=== PATIENT | male | born 1985 | race Caucasian/White ===

== ENCOUNTER 2020-07-21 15:27 | Emergency (ER) | payer SELFPAY ==
--- NOTE | 2020-07-21 16:10 | ER ---
Nurse's Notes [facility] Name: Lionel Garcia Age: 35 yrs Sex: Male : 1985 Arrival Date: 07/21/2020 Time: 15:29 Bed 12 Private MD: Diagnosis: Contusion of left hand Presentation: 07/21 15:32 Chief complaint: Patient states: L hand pain and swelling that began yesterday after ss punching a wall. Coronavirus screen: Client denies travel out of the [place] in the last 14 days. Ebola Screen: Patient denies exposure to infectious person. Patient denies travel to an Ebola-affected area in the 21 days before illness onset. Initial Sepsis Screen: Does the patient meet any 2 criteria? No. Patient's initial sepsis screen is negative. Does the patient have a suspected source of infection? No. Patient's initial sepsis screen is negative. Risk Assessment: Do you want to hurt yourself or someone else? Patient reports no desire to harm self or others. Onset of symptoms was July 20, 2019. 15:32 Method Of Arrival: Law Enforcement: Emy ROSAS 15:32 Acuity: NUSRAT 4 ss Historical: - Allergies: 15:34 No Known Allergies; ss - Immunization history:: Adult Immunizations up to date. Screenin:35 Abuse screen: Denies threats or abuse. Denies injuries from another. Nutritional ss screening: No deficits noted. Tuberculosis screening: Never had TB. Fall Risk None identified. Assessment: 15:35 General: Appears in no apparent distress. comfortable, Behavior is calm, cooperative. ss Pain: Complains of pain in left hand Quality of pain is described as aching, tender, Is continuous. Neuro: Level of Consciousness is awake, alert, obeys commands, Oriented to person, place, time, situation. Cardiovascular: Capillary refill < 3 seconds is brisk in bilateral fingers. Cardiovascular: Pulses are palpable in right radial artery and left radial artery. Respiratory: Respiratory effort is even, unlabored, Respiratory pattern is regular, symmetrical. GI: No signs and/or symptoms were reported involving the gastrointestinal system. Derm: Skin is intact, is healthy with good turgor, Skin is dry, Skin is pink, warm \T\ dry. normal. Vital Signs: 15:41 Pulse 97; Temp 97.9(TE); Pulse Ox 98% on R/A; ss ED Course: 15:29 Patient arrived in ED. ss 15:29 Lisseth Mejias F[facility]-C [facility] kb 15:29 Josh Teague MD is Attending Physician. kb 15:30 Jacqueline Cano, RN is Primary Nurse. ss 15:33 Triage completed. ss 15:34 Arm band placed on right wrist. ss 15:35 Patient has correct armband on for positive identification. law enforcement with ss patient. 16:09 Hand Left 3 View XRAY In Process Unspecified. EDMS 16:15 No provider procedures requiring assistance completed. Patient did not have IV access ss during this emergency room visit. Administered Medications: 16:11 Drug: Ibuprofen 800 mg Route: PO; ss 16:16 Follow up: Response: Medication administered at discharge. ss Outcome: 16:10 Discharge ordered by . kb 16:15 Discharged to Law Enforcement ss 16:15 Condition: good 16:15 Discharge instructions given to patient, police, Instructed on discharge instructions, follow up and referral plans. Demonstrated understanding of instructions, follow-up care. 16:16 Patient left the ED. ss Signatures: Dispatcher [employer] EDMS Lisseth Mejias FNP-C FNP-Ticob Jacqueline Cano, RN RN ss
--- NOTE | 2020-07-21 16:10 | EDPHYS ---
Physician Documentation [facility] Name: Lionel Garcia Age: 35 yrs Sex: Male : 1985 Arrival Date: 07/21/2020 Time: 15:29 Bed 12 Private MD: ED Physician Josh Teague HPI: 07/21 16:08 This 35 yrs old Male presents to ER via Law Enforcement with complaints of kb Hand Pain. 16:08 The patient or guardian reports a contusion, decreased range of motion, injury, pain, kb swelling, tenderness. The complaints affect the left hand diffusely. Context: The problem was sustained at home, resulted from using own fist to strike, a wall. Onset: The symptoms/episode began/occurred yesterday. Modifying factors: The symptoms are alleviated by nothing, the symptoms are aggravated by nothing. Associated signs and symptoms: The patient has no apparent associated signs or symptoms. Severity of symptoms: At their worst the symptoms were moderate, in the emergency department the symptoms are unchanged. The patient has not experienced similar symptoms in the past. The patient has not recently seen a physician. Pt reports hand pain, swelling, decreased ROM since yesterday after punching the wall. Historical: - Allergies: 15:34 No Known Allergies; ss - Immunization history:: Adult Immunizations up to date. ROS: 16:07 Constitutional: Negative for fever, chills, and weight loss, Cardiovascular: Negative kb for chest pain, palpitations, and edema, Respiratory: Negative for shortness of breath, cough, wheezing, and pleuritic chest pain, Abdomen/GI: Negative for abdominal pain, nausea, vomiting, diarrhea, and constipation, Skin: Negative for injury, rash, and discoloration, Neuro: Negative for headache, weakness, numbness, tingling, and seizure. 16:07 MS/extremity: Positive for contusion, decreased range of motion, pain, swelling, tenderness, of the left hand. Exam: 16:07 Constitutional: This is a well developed, well nourished patient who is awake, alert, kb and in no acute distress. Head/Face: Normocephalic, atraumatic. Chest/axilla: Normal chest wall appearance and motion. Nontender with no deformity. No lesions are appreciated. Cardiovascular: Regular rate and rhythm with a normal S1 and S2. No gallops, murmurs, or rubs. Normal PMI, no JVD. No pulse deficits. Respiratory: Lungs have equal breath sounds bilaterally, clear to auscultation and percussion. No rales, rhonchi or wheezes noted. No increased work of breathing, no retractions or nasal flaring. Abdomen/GI: Soft, non-tender, with normal bowel sounds. No distension or tympany. No guarding or rebound. No evidence of tenderness throughout. Skin: Warm, dry with normal turgor. Normal color with no rashes, no lesions, and no evidence of cellulitis. Neuro: Awake and alert, GCS 15, oriented to person, place, time, and situation. Cranial nerves II-XII grossly intact. Motor strength 5/5 in all extremities. Sensory grossly intact. Cerebellar exam normal. Normal gait. 16:07 Musculoskeletal/extremity: Extremities: grossly normal except: noted in the left hand: contusion, decreased ROM, pain, swelling, tenderness, ROM: limited active range of motion due to pain, in the left hand, Circulation is intact in all extremities. Sensation intact. Vital Signs: 15:41 Pulse 97; Temp 97.9(TE); Pulse Ox 98% on R/A; ss MDM: 15:29 Patient medically screened. kb 16:07 Data reviewed: vital signs, nurses notes. Data interpreted: Pulse oximetry: on room air kb is 98 %. Interpretation: normal. Counseling: I had a detailed discussion with the patient and/or guardian regarding: the historical points, exam findings, and any diagnostic results supporting the discharge/admit diagnosis, radiology results, the need for outpatient follow up, a family practitioner, to return to the emergency department if symptoms worsen or persist or if there are any questions or concerns that arise at home. 07/21 15:29 Order name: Hand Left 3 View XRAY kb Administered Medications: 16:11 Drug: Ibuprofen 800 mg Route: PO; ss 16:16 Follow up: Response: Medication administered at discharge. Disposition: 07/22 08:42 Co-signature as Attending Physician, Josh Teague MD I agree with the assessment and hebert plan of care. Disposition: 07/21/20 16:10 Discharged to Home. Impression: Contusion of left hand. - Condition is Stable. - Discharge Instructions: Hand Contusion, [id number]. - Medication Reconciliation Form, Thank You Letter, Antibiotic Education, Prescription Opioid Use form. - Follow up: Emergency Department; When: As needed; Reason: Worsening of condition. Follow up: Private Physician; When: 2 - 3 days; Reason: Recheck today's complaints, Continuance of care, Re-evaluation by your physician. Signatures: Dispatcher [employer] EDMS Lisseth Mejias, CATALOG SPECIALIST-C CATALOG SPECIALIST-Josh Lee MD MD cha Smirch, Shelby, RN RN ss Corrections: (The following items were deleted from the chart) 07/21 16:16 16:10 07/21/2020 16:10 Discharged to Home. Impression: Contusion of left hand. ss Condition is Stable. Forms are Medication Reconciliation Form, Thank You Letter, Antibiotic Education, Prescription Opioid Use. Follow up: Emergency Department; When: As needed; Reason: Worsening of condition. Follow up: Private Physician; When: 2 - 3 days; Reason: Recheck today's complaints, Continuance of care, Re-evaluation by your physician. kb
[2020-07-21] MEDS ORDERED: IBUPROFEN 400 MG TAB ONE (16:25)
--- NOTE | 2020-07-21 16:39 | RAD REPORT ---
EXAM DESCRIPTION: RAD - Hand Left 3 View - 07/21/2020 4:09 pm CLINICAL HISTORY: PAIN Pain and swelling COMPARISON: No comparisons FINDINGS: Moderate soft tissue swelling is seen along the dorsum of the hand. No acute fracture disl ocation identified.
== END 2020-07-21 16:16 | disposition home or self-care (01) ==
LOC: ER 15:27
DX: S60.222A Contusion of left hand, initial encounter (principal); W22.09XA Striking against other stationary object, initial encounter; Y93.89 Activity, other specified; Y92.9 Unspecified place or not applicable
CPT/HCPCS: 99283

== ENCOUNTER 2020-12-11 09:25 | Emergency (ER) | payer SELFPAY ==
[2020-12-11] MEDS ORDERED: ONDANSETRON 4 MG/2 ML VIAL ONE (10:11)
[2020-12-11] MEDS ORDERED: FENTANYL CITR 100 MCG/2 ML ONE (10:11)
[2020-12-11 10:20] LABS: Absolute Lymphocytes (CBC) 1.3 K/uL (0.7-4.9); Basophils % 0.7 % (0-1.3); Hematocrit 46.9 % (39.6-49.0); Lymphocytes % 10.6 % (15.3-44.8); MPV 8.4 fL (7.6-11.3); RBC Red Blood Cell Count 5.01 M/uL (4.33-5.43)
[2020-12-11 10:24] LABS: Protime INR 1.05
[2020-12-11 10:30] LABS: Albumin 3.9 g/dL (3.4-5.0); Bilirubin Direct 0.1 mg/dL (0-0.2); Bilirubin Total 0.5 mg/dL (0.2-1.0); Potassium 3.9 mmol/L (3.5-5.1); Protein, Total 7.8 g/dL (6.4-8.2)
[2020-12-11 11:17] LABS: Urine Blood 2+ (Negative); Urine Glucose Negative (Negative); Urine Protein Negative (Negative); Urine Specific Gravity 1.015 (1.005-1.030)
--- NOTE | 2020-12-11 11:32 | RAD REPORT ---
EXAM DESCRIPTION: CT - Chest For Pe Angio - 12/11/2020 11:03 am CLINICAL HISTORY: Chest pain. syncope, right sided chest pain COMPARISON: Abdomen Pelvis W Contrast dated 12/11/2020 TECHNIQUE: CT angiogram of the pulmonary arteries was performed with MIP. All CT scans are performed using dose optimization technique as appropriate and may include automated exposure control or mA/KV adjustment according to patient size. FINDINGS: No evidence of pulmonary thromboembolism. No acute aortic finding demonstrated. The lungs are clear. No significant pericardial or pleural fluid. No concerning bony finding. IMPRESSION: No evidence of pulmonary thromboembolism. No acute lung findings.
--- NOTE | 2020-12-11 11:33 | RAD REPORT ---
EXAM DESCRIPTION: CTAbdomen Pelvis W Contrast - 12/11/2020 11:03 am CLINICAL HISTORY: Abdominal pain. abdominal pain, syncope COMPARISON: No comparisons TECHNIQUE: Biphasic CT imaging of the abdomen and pelvis was performed with 100 ml non-ionic IV cont rast. All CT scans are performed using dose optimization technique as appropriate and may include automated exposure control or mA/KV adjustment according to patient size. FINDINGS: The lung bases are clear. The liver, spleen, pancreas, adrenal glands and left kidney are within normal limits. 3 mm calculus i s suspected at the right UVJ resulting in mild right hydronephrosis. No bowel obstruction, free air, free fluid or abscess. The appendix is normal. No evidence of signi ficant lymphadenopathy. No suspicious bony findings. Small fat containing left inguinal hernia. IMPRESSION: 3 mm calculus right UVJ resulting in mild right hydronephrosis.
[2020-12-11 11:58] LABS: Barbiturates NEGATIVE (NEGATIVE); Benzodiazepines NEGATIVE (NEGATIVE); Cocaine NEGATIVE (NEGATIVE); METHAMPHETAM POSITIVE (NEGATIVE); Methadone NEGATIVE (NEGATIVE); Opiates NEGATIVE (NEGATIVE); Phencyclidine NEGATIVE (NEGATIVE); THC Cannibis POSITIVE (NEGATIVE)
[2020-12-11] MEDS ORDERED: KETOROLAC 30 MG/ML INJ ONE (12:15)
[2020-12-11] MEDS ORDERED: TAMSULOSIN 0.4 MG SR CAP ONE (12:15)
[2020-12-11] MEDS ORDERED: CEFTRIAXONE/SWI 1gm 2 GM/20 ML SYR ONE (12:16)
--- NOTE | 2020-12-11 13:01 | ER ---
Nurse's Notes [facility] Name: Lionel Garcia Age: 35 yrs Sex: Male : 1985 Arrival Date: 12/11/2020 Time: 09:25 Bed 5 Private MD: Diagnosis: Calculus of kidney and ureter Presentation: 12/11 09:35 Chief complaint: Patient states: R back pain that started 45 mins ago and now radiates sv to the RLQ. + urination, took Azo's this morning. Friend reports yesterday the pt passed out. Coronavirus screen: Client denies travel out of the [place] in the last 14 days. At this time, the client does not indicate any symptoms associated with coronavirus-19. Ebola Screen: No symptoms or risks identified at this time. Initial Sepsis Screen:. Risk Assessment: Do you want to hurt yourself or someone else? Patient reports no desire to harm self or others. Onset of symptoms was December 11, 2020. 09:35 Method Of Arrival: Wheelchair sv 09:35 Acuity: NUSRAT 2 sv Triage Assessment: 09:38 General: Appears in no apparent distress. uncomfortable, Behavior is cooperative, sv drowsy. Pain: Complains of pain in right mid back and right low back Pain radiates to anterior aspect of right lateral abdomen and right lower quadrant. Neuro: Level of Consciousness is obeys commands, lethargic. Respiratory: Respiratory effort is even, unlabored. Historical: - Allergies: 09:38 Codeine; sv - PMHx: 09:38 None; sv - PSHx: 09:38 None; sv - Immunization history:: Client reports having NOT received the Covid vaccine. - Social history:: Smoking status: Patient reports the use of cigarette tobacco products, smokes one-half pack cigarettes per day. Screenin:07 Abuse screen: Denies threats or abuse. Denies injuries from another. Nutritional hb screening: No deficits noted. Tuberculosis screening: No symptoms or risk factors identified. Fall Risk None identified. Assessment: 10:05 General: Appears in no apparent distress. Behavior is calm, cooperative. Pain: Pain hb currently is 8 out of 10 on a pain scale. Neuro: Level of Consciousness is awake, alert, obeys commands, Oriented to person, place, time, situation. Cardiovascular: Patient's skin is warm and dry. Respiratory: Airway is patent Respiratory effort is even, unlabored, Respiratory pattern is regular, symmetrical. GI: Reports lower abdominal pain, upper abdominal pain. : Reports decreased urination, dark urine. EENT: No signs and/or symptoms were reported regarding the EENT system. Derm: Skin is pink, warm \T\ dry. Musculoskeletal: No signs and/or symptoms reported regarding the musculoskeletal system. 10:40 Reassessment: Patient appears in no apparent distress at this time. Patient and/or hb family updated on plan of care and expected duration. Pain level reassessed. Patient is alert, oriented x 3, equal unlabored respirations, skin warm/dry/pink. Patient denies pain at this time. Patient states feeling better. Patient states symptoms have improved. 12:02 Reassessment: Patient appears in no apparent distress at this time. Patient and/or hb family updated on plan of care and expected duration. Pain level reassessed. Patient is alert, oriented x 3, equal unlabored respirations, skin warm/dry/pink. Vital Signs: 09:35 BP 165 / 119; Pulse 65; Resp 18; Pulse Ox 98% ; Weight 90.72 kg; Height 6 ft. 2 in. sv (187.96 cm); Pain 5/10; 12:00 BP 159 / 109; Pulse 64; Resp 15; Pulse Ox 99% on R/A; Pain 4/10; hb 09:35 Body Mass Index 25.68 (90.72 kg, 187.96 cm) sv ED Course: 09:25 Patient arrived in ED. mr 09:29 Ranjan Cortez PA is PHCP. jm 09:29 Wilder Sykes MD is Attending Physician. jmm 09:37 Triage completed. sv 09:38 Arm band placed on. sv 10:03 Inserted saline lock: 20 gauge in left antecubital area, using aseptic technique. Blood hb collected. 10:05 Iman Barber, DAVONTE is Primary Nurse. hb 10:07 Patient has correct armband on for positive identification. Bed in low position. Call hb light in reach. 11:03 CT Chest For PE Angio In Process Unspecified. EDMS 11:03 CT Abd/Pelvis - IV Contrast Only In Process Unspecified. EDMS 13:00 Chandan Kerr MD is Referral Physician. [facility] Administered Medications: 10:04 Drug: fentaNYL (PF) 25 mcg Route: IVP; Site: left antecubital; hb 10:30 Follow up: Response: No adverse reaction hb 10:05 Drug: Zofran (Ondansetron) 4 mg Route: IVP; Site: left antecubital; hb 10:33 Follow up: Response: No adverse reaction hb 11:59 Drug: Flomax (tamsulosin) 0.4 mg Route: PO; hb 12:01 Drug: Rocephin (cefTRIAXone) 2 grams Route: IV; Rate: calculated rate; Site: left hb antecubital; 12:01 Drug: Ketorolac 30 mg Route: IVP; Site: left antecubital; Outcome: 13:01 Discharge ordered by MD. montesinos 13:05 Patient left the ED. hb Signatures: Dispatcher [employer] Nettie Dhaliwal, Ranjan Fowler RN, PA PA jmm Rivera, Mary mr Baxter, Heather, RN RN hb
--- NOTE | 2020-12-11 13:02 | EDPHYS ---
Physician Documentation [facility] Name: Lionel Garcia Age: 35 yrs Sex: Male : 1985 Arrival Date: 12/11/2020 Time: 09:25 Bed 5 Private MD: ED Physician Wilder Sykes HPI: 12/11 12:57 This 35 yrs old Male presents to ER via Wheelchair with complaints of jmm Possible Kidney Stone. 12:57 The patient complains of pain in the right flank. Onset: The symptoms/episode jmm began/occurred gradually, 1 day(s) ago. Modifying factors: The symptoms are alleviated by nothing. the symptoms are aggravated by nothing. Associated signs and symptoms: Pertinent negatives: fever. The patient has not experienced similar symptoms in the past. Historical: - Allergies: 09:38 Codeine; sv - PMHx: 09:38 None; sv - PSHx: 09:38 None; sv - Immunization history:: Client reports having NOT received the Covid vaccine. - Social history:: Smoking status: Patient reports the use of cigarette tobacco products, smokes one-half pack cigarettes per day. ROS: 12:57 Constitutional: Negative for fever, chills, and weight loss, Cardiovascular: Negative jmm for chest pain, palpitations, and edema, Respiratory: Negative for shortness of breath, cough, wheezing, and pleuritic chest pain. 12:57 Abdomen/GI: Positive for abdominal pain. 12:57 All other systems are negative. Exam: 12:57 Constitutional: This is a well developed, well nourished patient who is awake, alert, jmm and in no acute distress. Head/Face: atraumatic. Eyes: EOMI, no conjunctival erythema appreciated ENT: Moist Mucus Membranes Neck: Trachea midline, Supple Chest/axilla: Normal chest wall appearance and motion. Cardiovascular: Regular rate and rhythm. No edema appreciated Respiratory: Normal respirations, no respiratory distress appreciated 12:57 Skin: General appearance color normal MS/ Extremity: Moves all extremities, no obvious deformities appreciated, no edema noted to the lower extremities Neuro: Awake and alert, normal gait Psych: Behavior is normal, Mood is normal, Patient is cooperative and pleasant 12:57 Abdomen/GI: Inspection: abdomen appears normal, Bowel sounds: normal, Palpation: soft, moderate abdominal tenderness, in the right lower quadrant. 12:57 Back: CVA tenderness, that is moderate, is noted on the right. Vital Signs: 09:35 BP 165 / 119; Pulse 65; Resp 18; Pulse Ox 98% ; Weight 90.72 kg; Height 6 ft. 2 in. sv (187.96 cm); Pain 5/10; 12:00 BP 159 / 109; Pulse 64; Resp 15; Pulse Ox 99% on R/A; Pain 4/10; hb 09:35 Body Mass Index 25.68 (90.72 kg, 187.96 cm) sv MDM: 09:43 Patient medically screened. [facility] 12:59 Data reviewed: vital signs, nurses notes. Counseling: I had a detailed discussion with miguel the patient and/or guardian regarding: the historical points, exam findings, and any diagnostic results supporting the discharge/admit diagnosis, lab results, radiology results, the need for outpatient follow up, to return to the emergency department if symptoms worsen or persist or if there are any questions or concerns that arise at home. ED course: Patient is alert and non toxic in appearance in the ED. Decreased pain in the ED. Patient given strict return precautions. Including he is at high risk for sepsis due to ureterolithiasis. Patient understood and agrees with the plan of care. . 12/11 09:35 Order name: Basic Metabolic Panel; Complete Time: 10:38 [facility] 12/11 09:35 Order name: CBC with Diff; Complete Time: 10:23 [facility] 12/11 09:35 Order name: Hepatic Function; Complete Time: 10:38 [facility] 12/11 09:35 Order name: Lipase; Complete Time: 10:38 [facility] 12/11 09:43 Order name: Acetaminophen; Complete Time: 10:46 [facility] 12/11 09:43 Order name: ETOH Level; Complete Time: 10:46 [facility] 12/11 09:43 Order name: PT-INR; Complete Time: 10:38 [facility] 12/11 09:43 Order name: Ptt, Activated; Complete Time: 10:38 [facility] 12/11 09:43 Order name: Salicylate; Complete Time: 10:49 [facility] 12/11 09:43 Order name: Urine Drug Screen; Complete Time: 12:11 [facility] 12/11 10:47 Order name: CT Chest For PE Angio; Complete Time: 11:42 [facility] 12/11 10:47 Order name: CT Abd/Pelvis - IV Contrast Only; Complete Time: 11:42 [facility] 12/11 11:16 Order name: Urine Dipstick-Ancillary; Complete Time: 11:19 [facility] 12/11 09:35 Order name: IV Saline Lock; Complete Time: 10:05 [facility] 12/11 09:35 Order name: Labs collected and sent; Complete Time: 10:05 [facility] 12/11 09:35 Order name: Urine Dipstick-Ancillary (obtain specimen); Complete Time: 12:02 [facility] 12/11 09:43 Order name: EKG; Complete Time: 09:44 [facility] 12/11 09:43 Order name: EKG - Nurse/Tech; Complete Time: 10:39 [facility] 12/11 09:43 Order name: Suicide Screening ([place]); Complete Time: 10:05 [facility] Administered Medications: 10:04 Drug: fentaNYL (PF) 25 mcg Route: IVP; Site: left antecubital; hb 10:30 Follow up: Response: No adverse reaction hb 10:05 Drug: Zofran (Ondansetron) 4 mg Route: IVP; Site: left antecubital; hb 10:33 Follow up: Response: No adverse reaction hb 11:59 Drug: Flomax (tamsulosin) 0.4 mg Route: PO; hb 12:01 Drug: Rocephin (cefTRIAXone) 2 grams Route: IV; Rate: calculated rate; Site: left hb antecubital; 12:01 Drug: Ketorolac 30 mg Route: IVP; Site: left antecubital; hb Disposition: 12/11/20 13:01 Discharged to Home. Impression: Calculus of kidney and ureter. - Condition is Stable. - Discharge Instructions: Kidney Stones, Dietary Guidelines to Help Prevent Kidney Stones. - Prescriptions for Zofran ODT 4 mg Oral tablet,disintegrating - place 1 tablet by TRANSLINGUAL route every 4-6 hours; 20 tablet. Cephalexin 500 mg Oral Capsule - take 1 capsule by ORAL route 3 times per day for 10 days; 30 capsule. Ibuprofen 800 mg Oral Tablet - take 1 tablet by ORAL route every 8 hours As needed take with food; 30 tablet. Flomax 0.4 mg Oral Capsule, Sust. Release 24 hr - take 1 capsule by ORAL route once daily 1/2 hour following the same meal each day; 30 capsule. - Medication Reconciliation Form, Thank You Letter, Antibiotic Education, Prescription Opioid Use form. - Follow up: Chandan Kerr MD; When: 2 - 3 days; Reason: Recheck today's complaints, Continuance of care, Re-evaluation by your physician. Addendum: 12/19/2020 19:02 Co-signature as Attending Physician, Wilder Sykes MD. p jean-claude Signatures: Dispatcher [employer] EDNettie Diop RN RN Wilder Guevara MD MD pkl Mickail, Joel, PA PA jmm Baxter, Heather, RN RN Corrections: (The following items were deleted from the chart) 12/11 13:05 13:01 12/11/2020 13:01 Discharged to Home. Impression: Calculus of kidney and ureter. hb Condition is Stable. Forms are Medication Reconciliation Form, Thank You Letter, Antibiotic Education, Prescription Opioid Use. Follow up: Chandan Kerr; When: 2 - 3 days; Reason: Recheck today's complaints, Continuance of care, Re-evaluation by your physician. yamel
[2020-12-11 13:15] VITALS: BP 159/109; O2SAT 99
--- NOTE | 2020-12-12 09:01 | EKG ---
Test Date: 2020-12-11 Test Time: 10:35:26 [employer]: HB MEASUREMENT RESULTS: Intervals: Rate: 73 SC: 138 QRSD: 70 QT: 384 QTc: 423 [place]: P: 38 SC: 138 QRS: 28 T: 41 INTERPRETIVE STATEMENTS: Normal sinus rhythm Normal ECG Compared to ECG 01/11/2010 19:16:52 Sinus tachycardia no longer present Electronically Signed On 12-12-20 08:58:59 CDT by August Vela
== END 2020-12-11 13:05 | disposition home or self-care (01) ==
LOC: ER 09:25
DX: N20.2 Calculus of kidney with calculus of ureter (principal); F17.210 Nicotine dependence, cigarettes, uncomplicated; Z88.5 Allergy status to narcotic agent
CPT/HCPCS: 36415; 71275; 74177; 80048; 80076; 80307; 80320; 80329; 81003; 83690; 85025; 85610; 85730; 93005; 96374; 96375; 99284; J0696; J2405; J3010; Q9967